=== PATIENT | male | born 1965 | race Caucasian/White ===

== ENCOUNTER 2024-04-07 00:41 | Emergency (ER) | payer OTHER, SELFPAY ==
[2024-04-07 00:42] VITALS: BP 125/54; PULSE 60; RESP 16; TEMP 36.7; O2SAT 99; BMI 28.7
--- NOTE | 2024-04-07 02:09 | ED_ITS ---
HPI - General Adult General Chief complaint: Animal Bite Stated complaint: bug sting? on neck Time Seen by Provider: 04/07/24 01:48 Source: patient Mode of arrival: ambulatory Limitations: no limitations History of Present Illness ED Provider: DR. Robb HPI narrative: 59-year-old male came in for evaluation of left-sided neck pain, redness, after was stung by a bee yesterday. No shortness of breath, nose throat swelling or difficulty breathing. No fever, no chills. Patient is not known to have bee allergy in the past Related Data Previous Rx's ?Medication ?Instructions ?Recorded doxycycline hyclate 100 mg tablet 100 mg PO BID #14 tabs 04/07/24 prednisone 20 mg tablet 20 mg PO BID #10 tabs 04/07/24 Allergies Allergy/AdvReac Type Severity Reaction Status Date / Time No Known Allergies Allergy Verified 04/07/24 00:45 [No Known Allergies*] Review of Systems Review of Systems: All other systems are reviewed and are negative Constitutional: Reports as per HPI and Reports no additional constitutional complaints Eyes: Reports as per HPI and Reports no additional eye complaints Reports system reviewed and no additional complaints, except as documented Cardiovascular: Reports as per HPI and Reports no additional cardiovascular complaints Respiratory: Reports as per HPI and Reports no additional respiratory complaints Gastrointestinal: Reports as per HPI and Reports no additional gastrointestinal complaints Genitourinary: Reports no additional female genitourinary complaints Musculoskeletal: Reports no additional musculoskeletal complaints Skin/Breast: Reports system reviewed and no additional complaints, except as docu Psychiatric: Reports no additional psychiatric complaints Endocrine: Reports no additional endocrine complaints Hematologic/Lymphatic: Reports no additional hematologic/lymphatic complaints Allergic/Immunologic: Reports no additional allergic/immunologic complaints Reports system reviewed and no additional complaints, except as documented and Reports Abnormal speech present [facility] Social History Social History Advance Directives: No Advance Directives Information Provided: No Do you have a plan to hurt others: No Plan Physical Exam ED Vital Signs: Vital Signs - 24 hr 04/07/24 00:42 Temperature 98.1 F Pulse Rate 60 Respiratory Rate 16 Blood Pressure 125/54 L Pulse Oximetry 99 Oxygen Delivery Method Room Air BMI result Body Mass Index 28.7 Vital signs have been reviewed and appear to be correct. Blood pressure el evated. Heart rate normal. Respiratory rate normal. Temperature normal. Oxygen saturation normal. Appearance: Alert. Oriented X3. No acute distress. Head: Normal external exam. Normocephalic. Atraumatic. No Boyd signs noted. No raccoon eyes noted Eyes: PERRLA. EOMI. Conjunctiva and sclera normal. Eyelids normal. ENT: TM's Normal. Pharynx normal. Uvula midline. Moist mucous membranes. No trismus noted. No drooling noted. No muffled voice noted. Neck: Normal inspection. 3 x 3 cm circular area of redness, hotness, no fluctuation, no discharge. Patent airway, no stridor. CVS: Normal heart rate and rhythm. Heart sound normal. No murmurs noted. Pulses normal throughout. Respiratory: No respiratory distress. Painless inspiration. Breath sounds normal. No wheezes/rales/rhonchi noted. Chest nontender. No accessory muscle usage noted or decreased air movement noted. Abdomen: Soft and nontender. Bowel sounds normal in all 4 quadrants. No distention noted. No organomegaly noted. No visible injury noted. Back: No CVA tenderness. Full range of motion noted. Skin: Skin warm and dry. Normal skin color. Normal skin turgor. No rashes/lesions/lacerations noted. Extremities: No lower extremity edema. Extremities exhibit normal range of motion. Extremities nontender. Neuro: Oriented X 3. Cranial nerve exam: II-XII are grossly intact No motor deficit. No sensory deficit. Reflexes normal. Course Reevaluation(s) Reevaluation #1: S/p bee sting with left-sided neck focal reaction with cellulitis, will start on doxycycline. No sepsis. Time: 02:15 Medical Decision Making Differential Diagnosis Differential Diagnoses: The differential diagnosis associated with the presentation includes (Allergic reaction, focal inflammatory reaction, focal cellulitis.) Admission/Observation Consideration of admission/observation: Escalation of care including admission/observation considered Discharge Plan Discharge Clinical Impression: Infected insect bite Patient Disposition: Home, Self-Care Instructions: Cellulitis (ED) Prescriptions: New doxycycline hyclate 100 mg tablet 100 mg PO BID Qty: 14 0RF prednisone 20 mg tablet 20 mg PO BID Qty: 10 0RF Print Language: German
[2024-04-07] MEDS: Doxycycline Monohydrate 100 MG CAPSULE PO (02:32)
[2024-04-07 02:37] VITALS: BP 125/54; PULSE 60; RESP 16; TEMP 36.7; O2SAT 99
== END 2024-04-07 02:39 | disposition home or self-care (01) ==
PROVIDERS: Emergency Provider Emergency Medicine; PCP Internal Medicine
DX: L03.221 Cellulitis of neck (principal)
CPT/HCPCS: 99282

== ENCOUNTER 2025-02-25 14:28 | Emergency (ER) | payer OTHER, SELFPAY ==
--- NOTE | ~2025-02-25 | CT_ITS ---
CLINICAL HISTORY: r lateral headache x [address] head without contrast Comparison: None provided Findings: No intra-axial mass, midline shift, hydrocephalus, or acute hemorrhage. No significant atrophy-like change or white matter disease. There is no sinus or mastoid fluid. The orbits are unremarkable. No skull fracture. IMPRESSION: 1. No acute intracranial findings. This document has been electronically signed by: Anyi Jerome MD on 02/25/2025 20:48:50
[2025-02-25 15:11] VITALS: BP 118/61; PULSE 57; RESP 14; TEMP 36.6; O2SAT 95; BMI 27.9
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
[2025-02-25 16:03] LABS: MANUAL DIFF FLAG NO
[2025-02-25 16:05] LABS: Hematocrit 41.3 % (42.0-52.0); Hemoglobin 14.6 g/dl (14.0-18.0); Imm Gran Abs Auto 0.01 X10*3/uL (0.00-0.03); Imm Gran Pct Auto 0.1 % (0.0-0.4); Lymphocytes Absolute Auto 2.0 X10*3/uL (1.2-4.9); Mean Corpuscular HGB Conc 35.4 g/dl (31.0-36.0); Mean Corpuscular Hemoglobin 30.1 pg (27.0-33.0); Mean Corpuscular Volume 85.2 fL (80.0-98.0); NRBC Abs Auto 0.000 X10*3/uL (0.0-0.012); NRBC Pct Auto 0.0 /100WBC (0.0-0.2); Platelet Count 196 X10*3/uL (160-400); Red Blood Count 4.85 X10*6/uL (4.60-5.80); White Blood Count 6.7 X10*3/uL (4.8-10.8)
[2025-02-25 16:21] LABS: Alanine Aminotransferase 21 U/L (0-40); Albumin Level 4.1 g/dL (3.5-5.0); Alkaline Phosphatase 45 U/L (39-117); Anion Gap 10 (12-20); Aspartate Amino Transferase 23 U/L (5-37); Blood Urea Nitrogen 18 mg/dL (9-16); Calcium 8.8 mg/dL (8.4-10.2); Carbon Dioxide 28 mmol/L (22-29); Chloride 105 mmol/L (96-108); Creatinine Clr Calc Pharmacy 104.0; Estimated Glomerular Filt Rate > 60; Potassium 4.2 mmol/L (3.3-5.1); Sodium 139 mmol/L (135-145); Total Protein 6.4 g/dL (6.5-8.0)
[2025-02-25 17:00] VITALS: BP 101/57; PULSE 56; RESP 18; TEMP 36.6; O2SAT 96
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
[2025-02-25] MEDS: Lidocaine 4 % Patch ADH..PATCH 1 PATCH TRANSDERMA (19:38)
[2025-02-25 20:00] VITALS: BP 117/72; PULSE 47; RESP 16; TEMP 36.5; O2SAT 93
[2025-02-25 20:32] VITALS: BP 117/72; PULSE 47; RESP 16; TEMP 36.5; O2SAT 93
== END 2025-02-25 20:42 | disposition home or self-care (01) ==
PROVIDERS: Nurse Practitioner Family; Emergency Provider Emergency Medicine; PCP Internal Medicine
DX: M53.1 Cervicobrachial syndrome (principal); R51.9 Headache, unspecified; M54.2 Cervicalgia; M79.10 Myalgia, unspecified site; Z79.899 Other long term (current) drug therapy
CPT/HCPCS: 36415; 70450; 80053; 85025; 99284

== ENCOUNTER → 2025-02-25 15:17 | Outpatient (BNV) | payer OTHER, SELFPAY | PROVIDERS: Emergency Provider Emergency Medicine; PCP Internal Medicine; Visit Provider Radiology Diagnostic Radiology | DX: R51.9 Headache, unspecified (principal) | CPT/HCPCS: 70450 ==